=== PATIENT | male | born 1965 | race Caucasian/White ===

== ENCOUNTER → 2018-08-07 | Outpatient (CLI) | payer BC ==
--- NOTE | 2018-08-08 10:41 | PCVCIMAG ---
APPROVED REPORT Study performed: 08/07/2018 14:53:11 Exam: Stress Echocardiogram Indication: Chest pain Patient Location: Echo lab Stress Nurse: Kate Lemus RN Status: routine Ht: 5 ft 11 in HR: 62 bpm BP: 122/78 mmHg Rhythm: NSR Procedure The patient underwent an Exercise Stress Test using the Moy Protocol. Blood pressure, heart rate, and EKG were monitored. An Echocardiogram was performed by environmental test technician in four stages in quad fashion. At peak stress, four selected images were obtained and placed side by side with resting images for comparison. Stress Test Details Stress Test: Exercise stress testing was performed using a Moy protocol. HR Resting HR: 62 bpmMax Heart Rate (APMHR): 167 bpm Max HR Achieved: 187 bpmTarget HR (85% APMHR): 141 bpm % of APMHR: 111 Recovery HR: 114 bpm HR response to stress: Normal HR response to stress BP Resting BP: 122/78 mmHg Max BP: 150/70 mmHg Recovery BP: 124/80 mmHg ECG Resting ECG: Sinus Rhythm Stress ECG: Sinus Rhythm Recovery ECG: Sinus Rhythm Clinical Reason for Termination: Maximal effort Exercise duration: 12 min 30 sec Highest Stage Achieved: Stage 5: 5.0 mph at 18% grade. Exercise capacity: 15.30 METs Overall Exercise Capacity for Age: Good Stress ECG Conclusion ECG: Non-ischemic Clinical: Non-ischemic Pre-Stress Echo The resting Echocardiogram showed normal left ventricular contractility with an estimated Ejection Fraction of about >55%. Normal wall motion in all segments on baseline images. Post-Stress Echo The stress Echocardiogram showed normal left ventricular contractility with an estimated Ejection Fraction of about 60-65%. Normal augmentation of wall motion in all segments on post stress images. Clinical No clinical or ECG evidence for ischemia. Conclusion Clinical Response: Non-ischemic Exercise Capacity: Average Stress ECG Response: Non-ischemic Stress Echo Images: Non-ischemic The left ventricle is normal in size and wall thickness in both the rest and stress images. 1. Low risk study 2. Excellent functional capacity Other Information Study Quality: Good <Conclusion> The left ventricle is normal in size and wall thickness in both the rest and stress images. 1. Low risk study 2. Excellent functional capacity
== END | disposition home or self-care (01) ==
LOC: PCVCIMAG 16:47
PROVIDERS: ATTEND Internal Medicine
DX: R07.9 Chest pain, unspecified (principal)
CPT/HCPCS: 93325; 93351